=== PATIENT | male | born 1940 | race Two or more races ===

== ENCOUNTER 2024-04-15 06:36 | Day surgery (SDC) | payer OTHER ==
[~2024-04-15] VITALS: Ht 167.6 cm; Wt 72.6 kg
[~2024-04-15 06:36] MED LIST: AMLO1TAB21 PO; ATOR-507 PO; BUPR-239 PO; ISOS1TAB28 PO; LEVO75TA6 PO; PRAZ1CAP2 PO; SITA50TA PO; ZOLP5TAB5 PO; ceFAZolin 2 GM/D5W100ml 100 ML IV ONE
[2024-04-15] MEDS ORDERED: fentaNYL CITRATE 100 MCG/2 ML VL ONE (06:52)
[2024-04-15] MEDS ORDERED: PROPOFOL 10 MG/ML 20 ML IV ONE (06:54)
[2024-04-15] MEDS ORDERED: PHENYLEPHRINE HCL 10 MG/ML VL ONE (07:25)
[2024-04-15] MEDS ORDERED: ONDANSETRON HCL 4 MG/2 ML VIAL ONE (07:33)
[2024-04-15 07:41] VITALS: TEMP 98.2; O2SAT 97
[2024-04-15] MEDS ORDERED: HYDROmorphone HCL 2 MG/ML VL/or syr IV PRN (08:00)
[2024-04-15] MEDS ORDERED: ONDANSETRON HCL 4 MG/2 ML VIAL IV ONE (08:00)
[2024-04-15] MEDS ORDERED: ACETAMINOPHEN IV 1000 MG/100ML (10MG/ML) IV PRN (08:00)
[2024-04-15] MEDS ORDERED: MEPERIDINE HCL (25 MG/ML) 1ML VIAL IV PRN (08:00)
[2024-04-15 09:26] VITALS: BP 149/67; PULSE 51; RESP 12; O2SAT 96
[2024-04-15] MEDS: BUPIVACAINE 0.25% INJ 50ML VIAL ONE (09:34)
--- NOTE | 2024-04-17 06:06 | DVHOP2 ---
Operative Report - 2 Report Details Date: 04/15/24 Preop Diagnosis: Left index and ring trigger finger Postop Diagnosis: as above Surgeon: Hardy Fonseca MD [place] Supervisor: Jamin HUNG Anesthesiologist: Lucinda DELGADILLO Anesthesia: General Consent: The patient was informed of the risks and benefits of the procedure. These include but are not limited to complications of anesthesia, postoperative infection, incomplete relief of symptoms, recurrence of symptoms, damage to blood vessels, nerves and tendons, deep venous thrombosis, pulmonary embolism and possible need for repeat surgery in the future. Estimated Blood Loss: 2 cc Name of Procedure Performed Left index and ring trigger finger release Procedure Details Procedure Details: After administering appropriate antibiotics and anesthesia, the upper extremity was prepped and draped in the usual standard fashion. The arm was exsanguinated with Esmarch, and the tourniquet inflated to 250 mmHg. A longitudinal incision was made over the index and ring digit's A1 michele. Dissection was carried down to the flexor sheath with care taken to identify and protect the neurovascular bundles. The sheath was opened under direct vision with a scalpel, and then a scissor was used to release it under direct vision from the proximal extent of the A1 michele to just proximal to the proximal digital crease. Meticulous hemostasis was maintained with electrocautery. The tendons were identified and atraumatically pulled to ensure that no triggering remained. Patient was noted to have a nodule at his flexor tendon After irrigating out the wound with copious amounts of sterile saline, the skin was closed with 3-0 nylon simple interrupted sutures. The wound was dressed and the patient was sent to the recovery room in good cond ition, having tolerated the procedure well. Disposition Home HARDY FONSECA MD Apr 17, 2024 06:06
== END 2024-04-15 11:58 | disposition home or self-care (01) ==
LOC: SUR 06:36
PROVIDERS: ATTEND Orthopaedic Surgery Adult Reconstructive Orthopaedic Surgery
DX: M65.322 Trigger finger, left index finger (principal); M65.342 Trigger finger, left ring finger; I10 Essential (primary) hypertension; E11.9 Type 2 diabetes mellitus without complications; E03.9 Hypothyroidism, unspecified; Z79.899 Other long term (current) drug therapy; Z79.890 Hormone replacement therapy; Z79.84 Long term (current) use of oral hypoglycemic drugs; Z88.8 Allergy status to other drugs, medicaments and biological substances; Z98.890 Other specified postprocedural states
CPT/HCPCS: 26055; 82962; J2371; J2405; J2704; J3010; J3490